=== PATIENT | male | born 1955 | race Caucasian/White ===

== ENCOUNTER 2019-12-07 15:18 | Inpatient (IN) | payer OTHER ==
[~2019-12-07] VITALS: Ht 165.1 cm; Wt 100.0 kg
[2019-12-07] VITALS (8 sets, daily range): BP systolic 136–227; BP diastolic 57–107
--- NOTE | 2019-12-07 15:22 | NUR ---
PATIENT TO ROOM VIA WHEELCHAIR. PATIENT REPORTS CHEST PAIN WITH COUGH. CO-WORKS BRINGING PATIENT IN FOR EVALUATION, REPORTS HAVING CONFUSION X2 DAYS AND KNOW OF HISTORY OF STROKES. PATIENT ALERT AND ORIENTED ONLY TO SELF. PATIENT NOTED TO HAVE APHASIA. PAST MEDICAL HISTORY OBTAINED FROM PATIENT'S SON, VAN GAGNON. CELL PHONE NUMBER [phone], REQUESTING TO BE CONTACTED FOR ANY ADDITIONAL CHANGES TO PATIENT STATUS AND PLAN OF CARE.
--- NOTE | 2019-12-07 16:00 | NUR ---
DR MONSON AT BEDSIDE FOR ASSESSMENT;
[2019-12-07 16:02] LABS: PROTHROMBIN TIME 10.2 SECONDS (9.0-12.5)
[2019-12-07 16:03] LABS: ALBUMIN 3.5 g/dL (3.2-5.0); BILIRUBIN, TOTAL 0.4 mg/dL (0.0-1.4); CREATININE 2.7 mg/dL (0.7-1.3); POTASSIUM 4.1 mmol/l (3.5-5.1); TOTAL PROTEIN 6.6 g/dL (6.3-8.2)
[2019-12-07 16:08] LABS: HEMATOCRIT 29.9 % (39.0-50.0); IMMATURE GRANULOCYTES 0.3 % (0.0-5.0); MEAN CELL VOLUME 83.8 fL CALC (80.0-100.0); MEAN CORPUSCULAR HGB CONC 33.4 g/L CALC (32.0-36.0); NEUT# 4.53 thou/uL (1.82-7.42); RED BLOOD COUNT 3.57 mill/uL (4.70-6.10); RED CELL DISTRI WIDTH 14.5 % (11.5-15.5)
--- NOTE | 2019-12-07 16:29 | NUR ---
PT MEDICATED AT THIS TIME FOR HTN, 213/103; MONITORING DEVICES IN PLACE; WILL CONTINUE TO MONITOR
--- NOTE | 2019-12-07 17:00 | NUR ---
DR MONSON AT BEDSIDE TO REASSESS PT;
--- NOTE | 2019-12-07 17:37 | NUR ---
PT MEDICATED PER MAR FOR B/P 219/100 DR MONSON AT BEDSIDE FOR ASSESSMENT
--- NOTE | 2019-12-07 18:00 | NUR ---
PT SITTING UP ON STRETCHER; C/O LOWER BACK PAIN; MONITORING DEVICES IN PLACE; B/P IMPROVING AT THIS TIME; WILL CONTINUE TO MONITOR
--- NOTE | 2019-12-07 18:50 | NUR ---
PT MEDICATED PER MAR FOR LOWER BACK AND FLANK PAIN RATING 10 OUT OF 10; MONITORING DEVICES IN PLACE; WILL CONTINUE TO MONITOR
--- NOTE | 2019-12-07 19:08 | NUR ---
REPORT CALLED TO CHUY CARLIN
--- NOTE | 2019-12-07 19:11 | NUR ---
Admission Note Report Given to: CHUY CARLIN Transported by: Wheelchair X Stretcher Transported with: X Nurse Transporter X Patent IV O2 X Host And Hostess Location: X ICU MS2
--- NOTE | 2019-12-07 19:50 | NUR ---
[id number]- PT. ARRIVED TO THE FLOOR VIA STRETCHER ACCOMPANIED BY ER STAFF. PT. IS ABLE TO AMBULATE INTO BED. PT. ORIENTED TO CALL LIGHT, ROOM, AND POC; WILL NEED REINFORCEMENT. PT. IS A/A/OX3 BUT NOT ABLE TO ARTICULATE EVERYTHING CORRECTLY WITH SOME OF PT'S SENTENCES NOT MAKING SENSE,AND NOT ABLE TO GIVE PMH. PT. DOES REPORT THAT HE HAD SOME DRINKS TODAY AND DOES C/O COUGH AND CHEST HURTING FOR A FEW DAYS. PT. IS A POOR HISTORIAN. SKIN INTACT AND PUPILS ARE EQUAL AND REACTIVE AND ABLE TO FOLLOW PEN IN FRONT OF HIM. MARAH HOSE PLACED TO BLE. IV SITE PATENT AND SL TO LAC. B/P ELEVATED 226/107 AND PT. REPORTS HE THINKS HE TAKES CLONIDINE AT HOME, BUT IS A UNRELIABLE SOURCE AT THIS TIME. 1949- NOTIFIED DR. LOPEZ OF THE ABOVE NOTE WELL ELEVATED BUN/CREATININE WITH NO IVF ORDERS. NEW ORDERS RECEIVED AND TO BE CARRIED OUT.
--- NOTE | 2019-12-07 20:17 | NUR ---
B/P 181/96 AND MEDICATED WITH ORDERED PRN HYDRALAZINE ALONG WITH X1 DOSE OF ATIVAN; WILL REASSESS. FLU SWAB OBTAINED AND URINE SAMPLE WELL. PT. VOIDED 600MLS OF CLEAR YELLOW URINE.
[2019-12-07 20:54] LABS: URINE BILIRUBIN - DIPSTICK NEGATIVE (NEGATIVE); URINE BLOOD DIPSTICK SMALL (NEGATIVE); URINE COLOR YELLOW; URINE GLUCOSE - DIPSTICK 100 mg/dL (NEGATIVE); URINE KETONE NEGATIVE (NEGATIVE); URINE LEUK ESTERASE NEGATIVE (NEGATIVE); URINE NITRITE - DIPSTICK NEGATIVE (Negative); URINE PH 5.5 (4.5-8.0); URINE PROTEIN - DIPSTICK >=300 mg/dL (NEG-TRACE); URINE UROBILINOGEN - DIPSTICK 0.2 E.U./dL (0.2)
[2019-12-07 20:57] LABS: URINE WBC 0-2 WBC/hpf (0-5)
[2019-12-07 20:58] LABS: BARBITURATES NEGATIVE (NEGATIVE); COCAINE NEGATIVE (NEGATIVE); METHADONE NEGATIVE (NEGATIVE); OXCYCODONE NEGATIVE (NEGATIVE); TETRAHYDROCANNABIONOL NEGATIVE (NEGATIVE); TRICYLIC ANTIDEPRESSANTS NEGATIVE (NEGATIVE)
--- NOTE | 2019-12-07 21:15 | NUR ---
PT. C/O GENERALIZED PAIN ALONG WITH CHEST PAIN R/T COUGHING. MEDICATED WITH ORDERED PRN TYLENOL. WILL REASSESS. PT. WILL INTERMITTENTLY YELL OUT AND GET ANXIOUS IN REGARDS TO COUGHING WITH CHEST HURTING. RELAXATION TECHNIQUES IMPLEMENTED. PT. REPORTS HE IS HOT AND REMOVED MARAH HOSE AND FAN PROVIDED.
--- NOTE | 2019-12-07 23:11 | NUR ---
PT. RESTING IN BED ON RIGHT SIDE WITH EYES CLOSED; RESP. EVEN AND UNLABORED. BED ALARM ON. CALL LIGHT IS IN REACH.
[2019-12-08] VITALS (12 sets, daily range): BP systolic 129–184; BP diastolic 60–79
--- NOTE | 2019-12-08 00:02 | NUR ---
PT. CONTINUES TO C/O SORENESS TO CHEST FROM COUGHING AND GENERALIZED ACHINESS WITH INTERMITTENT YELLING DUE TO SENSITIVITY FROM COUGH. MEDICATED WITH NEW ORDERS RECEIVED FOR PAIN AND SLEEP/RELXATION. WILL CONTINUE TO MONITOR. NEURO CHECK PERFORMED PRIOR TO MEDICATIONS AND REMAINS THE SAME. ABLE TO MOVE ALL EXTREMETIES AND PUPILS EQUAL AND REACTIVE.
--- NOTE | 2019-12-08 02:00 | NUR ---
RESTING IN BED WITH NO DISTRESS NOTED; RESP. EVEN AND UNLABORED.
--- NOTE | 2019-12-08 03:11 | NUR ---
B/P 155/79 AND MEDICATED WITH ORDERED PRN APRESOLINE; WILL REASSESS. PT. IS SLEEPING AND AWAKNS TO VERBAL STIMULI. ENCOURAGED TO CALL FOR ANY NEEDS. CALL LIGHT IS IN REACH.
--- NOTE | 2019-12-08 05:10 | NUR ---
PT. YELLING OUT AND COUGHING AND REPORTING PAIN TO CHEST FROM COUGHING AND ELEVATED B/P ; MEDICATED WITH ORDERED PRN PERCOCET PER ORDER; WILL REASSESS PAIN AND B/P.
--- NOTE | 2019-12-08 06:31 | NUR ---
RESTING IN BED ON LEFT SIDE WITH EYES CLOSED; RESP. EVEN AND UNLABORED. CALL LIGHT IS IN REACH.
--- NOTE | 2019-12-08 06:45 | NUR ---
RECIEVED REPORT FROM CHUY TANNER. ASSUMED PT CARE.
--- NOTE | 2019-12-08 07:30 | NUR ---
PT ALERT TO PERSON AND TIME, POOR HISTORIAN. ABLE TO MAKE NEEDS KNOWN. PTDENIES CP, SOB OR DISTRESS AT THIS TIME. PT RESPIRATIONS SHALLOW , PT ENCOURAGED TO TAKE DEEP BREATHS TO OPEN LUNGS, PT STATED HE DIDN'T WANT TO BECAUSE THEN HE COUGHS AND IT HURTS. PT HAS PRODUCTIVE COUGH, SMALL AMOUNT GREEN PHLEGM, SAMPLE SENT TO LAB. ABDOMEN DISTENDED, NON-TENDER, BSX4 ACTIVE. CALL LIGHT IN REACH. WILL MONITOR.
--- NOTE | 2019-12-08 08:45 | NUR ---
DR. RAMIREZ AT [facility] FOR ASSESSMENT AND TO DISCUSS PLAN OF CARE.
--- NOTE | 2019-12-08 08:50 | NUR ---
PT LEFT UNIT FOR MRI VIA WC.
--- NOTE | 2019-12-08 09:00 | NUR ---
AL FROM MRI CALLED STATED PT WAS REFUSING TO GET MRI , PT THEN STARTED GETTING LOUD. PT REFUSED MRI TEST PER AL IN MRI.
--- NOTE | 2019-12-08 09:15 | NUR ---
ATTEMPTED TO NOTIFIY ORIANA GALVEZ. SON DID NOT ANSWER AND UNABLE TO LEAVE A VM, IE .. VM FULL.
--- NOTE | 2019-12-08 09:38 | NUR ---
LAB AT BEDSIDE FOR BLOOD DRAW.
[2019-12-08 10:28] LABS: CHOLESTEROL HDL RATIO 2.9 (<4.4 (CALC))
--- NOTE | 2019-12-08 10:30 | NUR ---
LEE HANCOCK AT BEDSIDE FOR ASSESSMENT AND PAPERWORK.
--- NOTE | 2019-12-08 11:47 | NUR ---
DIETARY ON UNIT, PT REPOSITIONED SELF. LUNCH TRAY SET UP.
--- NOTE | 2019-12-08 12:05 | NUR ---
PT RESTING IN BED OF L SIDE WITH EYES CLOSED. CALL LIGHT IN REACH. WILL MONITOR.
--- NOTE | 2019-12-08 13:00 | NUR ---
PT RESTING IN BED WITH EYES CLOSED. NO DISTRESS NOTED AT THIS TIME.
--- NOTE | 2019-12-08 14:18 | NUR ---
PT MEDICATED FOR PAIN 9/10 GENERALIZED ORDERED PER PT REQUEST.
--- NOTE | 2019-12-08 15:02 | NUR ---
PT RESTING IN BED WITH EYES CLOSED, NO SOB, COUGH OR DISTRESS NOTED AT THIS TIME. WILL MONITOR.
--- NOTE | 2019-12-08 16:13 | NUR ---
PT ASSISTED WITH URINAL, SBA . PT WITH STEADY GAIT.
[2019-12-08] MEDS ORDERED: ATORVASTATIN CA40 MG PO (16:53)
[2019-12-08] MEDS ORDERED: LISINOPRIL20 M1 PO (16:54)
[2019-12-08] MEDS ORDERED: NIFEDIPINE ER90 MG PO (16:55)
[2019-12-08] MEDS ORDERED: CLONIDINE0.1 MG PO (16:56)
[2019-12-08] MEDS ORDERED: CARVEDILOL25 MG PO (16:56)
[2019-12-08] MEDS ORDERED: PLAVIX75 MG PO (16:57)
[2019-12-08] MEDS ORDERED: LANTUS SOL100 UNIT/M SC (16:59)
--- NOTE | 2019-12-08 17:24 | NUR ---
DIETARY ON UNIT, DINNER TRAY SET UP.
--- NOTE | 2019-12-08 18:16 | NUR ---
PT MEDICATED FOR PAIN 06/18 ORDERED AND PER PT REQUEST. PT ALSO MEDICATED WITH COUGH SYRUP PER PT REQUEST. CALL LIGHT IN REACH. WILL MONITOR.
--- NOTE | 2019-12-08 19:00 | NUR ---
PATIENT WAS LAYING ON HIS LEFT SIDE, EYES CLOSED, AWAKENS EASILY, SITS UP IN BED. ALERT AND ORIENTED TO NAME, , PLACE. DOES NOT REMEMBER HIS AGE, CURRENT MONTH, HIS RESPONSE AT TIMES, "I DON'T KNOW." FOLOWS ALL DIRECTIONS ALTHOUGH HAS TO BE ASKED QUESTIONS REPEATEDLY. NO DRIFT ON EXTREMITIES, NO DROOP, NO SLURRING, OR NURSE MANAGER BILATERALLY WEAK. REPORTS HIS FEET HAVE ALWAYS BEEN BILATERALLY NUMB. SELF REPSOITIONS. NSR ON TELEMETRY. POC FOR TONIGHT DISCUSSED. LAC 20 G IV INTACT, SL'D. ON ROOM AIR, NO SOB NOTED. COUGH IS DIETIST, DRY. PT REPORTS HE IS FEELING BETTER. REPORTS PAIN IS AN 8 WHEN HE MOVES. CALL LIGHT WITHIN REACH. URINAL WITHIN REACH. AGREES TO CALL AT ALL TIMES FOR ASSISTANCE.
--- NOTE | 2019-12-08 19:55 | NUR ---
PT SUPERVISOR WASH HOUSE LIGHT, ASSISTED STANDBY TO RETSROOM. PT REPORTS HE HAD TO HAVE A BM, PT DID NOT HAVE A BM AND STATED, "NO, I DON'T LIKE THIS, I DON'T LIKE THIS PLACE," WHEN ASKED IF HE HAD A BM. SAT ON SIDE OF BED FOR A FEW MINUTES. LAYED BACK DOWN. TELEMETRY, BP CUFF, AND PULSE OX PLACED BACK ON. CALL LIGHT WITHIN REACH.
--- NOTE | 2019-12-08 20:35 | NUR ---
PATIENT ABLE TO SWALLOW HIS BEDTIME MEDICATIONS WITHOUT DIFFICULTY. CONVERSATES. NEW ICED WATER PROVIDED. NO OTHER NEEDS. CALL LIGHT WITHIN REACH.
[2019-12-09] VITALS: BP 134/61
--- NOTE | 2019-12-09 00:27 | NUR ---
PATIENT AWAKENS EASILY WITH NOISE, SATS 97% ON RA. GOES RIGHT BACK TO SLEEP. NO ACUTE DISTRESS SHOWN. NO NEEDS AT THIS TIME. CALL LIGHT WITHIN REACH.
[2019-12-09 02:00] VITALS: BP 149/81
--- NOTE | 2019-12-09 02:05 | NUR ---
PT AMUSEMENT PARK ENTERTAINER LIGHT, ASB TO RESTROOM, STEADY GAIT, WASHED HIS HANDS. REPORTS HE IS READY TO BE DISCHARGED. PROVIDED COUGH MEDICATION. NO OTHER COMPLAINTS. SITS UP, TURNS TV ON. CALL LIGHT WITHIN REACH.
--- NOTE | 2019-12-09 02:56 | NUR ---
PT HEALTH EDUCATION ASSISTANT LIGHT, REQUESTS CRACKERS WITH MILK. PROVIDED. NO ACUTE DISTRESS SHOWN. CALL LIGHT WITHIN REACH.
[2019-12-09 04:00] VITALS: BP 139/55
--- NOTE | 2019-12-09 04:41 | NUR ---
PT BOW MAKER MACHINE TENDER LIGHT. REPORTS SOMEONE TURNED HIS LIGHT ON AND HE WANTS ICED WATER. PROVIDED. SITS UP, WATCHES TV.
[2019-12-09 05:35] LABS: CREATININE 2.6 mg/dL (0.7-1.3); POTASSIUM 4.7 mmol/l (3.5-5.1)
[2019-12-09 05:43] LABS: HEMATOCRIT 29.8 % (39.0-50.0); HEMOGLOBIN 9.9 g/dl (14.0-18.0); MEAN CELL VOLUME 85.9 fL CALC (80.0-100.0); MEAN CORPUSCULAR HGB 28.5 pG CALC (26.0-32.0); MEAN CORPUSCULAR HGB CONC 33.2 g/L CALC (32.0-36.0); RED BLOOD COUNT 3.47 mill/uL (4.70-6.10); RED CELL DISTRI WIDTH 14.5 % (11.5-15.5)
[2019-12-09 06:00] VITALS: BP 154/57
--- NOTE | 2019-12-09 06:38 | NUR ---
PAIN MEDIACTION AND APRESOLINE IV PRN GIEVN TO PATIENT PER PARAMETERS. PT NOW SITS UP, WATCHES TV. CALL LIGHT WIHIN REACH.
--- NOTE | 2019-12-09 06:45 | NUR ---
RECIEVED REPORT FROM CHUY WOOD. ASSUMED PT CARE.
[2019-12-09 07:15] VITALS: BP 157/65
--- NOTE | 2019-12-09 07:15 | NUR ---
PT RESTING IN BED. A&OX3, ABLE TO MAKE NEEDS KNOWN. RESPIRATIONS EVEN/UNLABORED. SA02@98%RA, PT CONTINUES WITH COUGH. AFEBRILE. LS CLEAR THROUGHOUT. CALL LIGHT IN REACH WILL MONITOR.
--- NOTE | 2019-12-09 08:00 | NUR ---
ASSISTED PT WITH BATH SET UP. PT BATHED SELF.
--- NOTE | 2019-12-09 10:00 | NUR ---
DR. RAMIREZ AT [facility] FOR ASSESSMENT AND TO DISCUSS PLAN OF CARE, NEW ORDERS RECIEVED.
[2019-12-09 10:05] VITALS: BP 157/65
--- NOTE | 2019-12-09 10:30 | NUR ---
PT MEDICATED FOR PAIN 810 PER PT REQUEST FOR COUGHING/RIB PAIN.
[2019-12-09] MEDS ORDERED: MEDDOSEPAK PO (11:07)
[2019-12-09] MEDS ORDERED: ZITHROMAX250 MG PO (11:07)
[2019-12-09] MEDS ORDERED: BIOTUSSIN PO (11:07)
[2019-12-09] MEDS ORDERED: VANTIN100 MG PO (11:07)
--- NOTE | 2019-12-09 11:15 | NUR ---
IV site discontinued, cath intact. No edema , no redness, voices no discomfort.
--- NOTE | 2019-12-09 11:28 | NUR ---
NOTIFIED SHAN, PT EMERGENCY CONTACT PER PT REQUEST FOR RIDE AT DISCHARGE.
--- NOTE | 2019-12-09 11:50 | NUR ---
Discharge instructions given. Patient verbalizes understanding of same. Discharged in stable condition via Wheelchair to Home with family. All belongings sent with pt. PAPER PRESCRIPTION SENT HOME WITH PT.
== END 2019-12-09 11:50 | disposition home or self-care (01) | DRG 178 ==
LOC: ED 15:18 → ED-I 17:20 → ED 18:04 → ICU 18:05
PROVIDERS: Emergency Medicine; Internal Medicine; ADMIT Internal Medicine; ATTEND Internal Medicine
DX: J15.5 Pneumonia due to Escherichia coli (principal); J44.1 Chronic obstructive pulmonary disease with (acute) exacerbation; J44.0 Chronic obstructive pulmonary disease with (acute) lower respiratory infection; N17.9 Acute kidney failure, unspecified; G93.40 Encephalopathy, unspecified; I12.9 Hypertensive chronic kidney disease with stage 1 through stage 4 chronic kidney disease, or unspecified chronic kidney disease; E11.22 Type 2 diabetes mellitus with diabetic chronic kidney disease; N18.3 Chronic kidney disease, stage 3 (moderate); E11.42 Type 2 diabetes mellitus with diabetic polyneuropathy; I25.10 Atherosclerotic heart disease of native coronary artery without angina pectoris; I69.311 Memory deficit following cerebral infarction; F40.240 Claustrophobia; M19.90 Unspecified osteoarthritis, unspecified site; Z95.1 Presence of aortocoronary bypass graft; Z95.5 Presence of coronary angioplasty implant and graft; Z79.4 Long term (current) use of insulin
CPT/HCPCS: J2060

== ENCOUNTER 2019-12-13 | Observation (INO) | payer OTHER ==
[2019-12-13] VITALS (8 sets, daily range): BP systolic 146–174; BP diastolic 73–93
[~2019-12-13] MED LIST: ATORVASTATIN CA40 MG PO; BIOTUSSIN PO; CARVEDILOL25 MG PO; CLONIDINE0.1 MG PO; LANTUS SOL100 UNIT/M SC; LISINOPRIL20 M1 PO; MEDDOSEPAK PO; NIFEDIPINE ER90 MG PO; PLAVIX75 MG PO; VANTIN100 MG PO; ZITHROMAX250 MG PO
[2019-12-13 01:06] LABS: HEMATOCRIT 29.8 % (39.0-50.0); IMMATURE GRANULOCYTES 0.5 % (0.0-5.0); MEAN CELL VOLUME 85.1 fL CALC (80.0-100.0); MEAN CORPUSCULAR HGB 28.6 pG CALC (26.0-32.0); MEAN CORPUSCULAR HGB CONC 33.6 g/L CALC (32.0-36.0); NEUT# 6.28 thou/uL (1.82-7.42); RED BLOOD COUNT 3.5 mill/uL (4.70-6.10); RED CELL DISTRI WIDTH 14.6 % (11.5-15.5)
[2019-12-13 01:24] LABS: ACT PARTIAL THROMBO TIME 20.1 SECONDS (20.0-32.5); PROTHROMBIN TIME 10.2 SECONDS (9.0-12.5)
[2019-12-13 01:25] LABS: ALBUMIN 3.2 g/dL (3.2-5.0); BILIRUBIN, TOTAL 0.3 mg/dL (0.0-1.4); CREATININE 2.9 mg/dL (0.7-1.3); POTASSIUM 3.9 mmol/l (3.5-5.1); TOTAL PROTEIN 6.1 g/dL (6.3-8.2)
[2019-12-13 01:26] LABS: BARBITURATES NEGATIVE (NEGATIVE); COCAINE NEGATIVE (NEGATIVE); METHADONE NEGATIVE (NEGATIVE); OXCYCODONE POSITIVE (NEGATIVE); TETRAHYDROCANNABIONOL NEGATIVE (NEGATIVE); TRICYLIC ANTIDEPRESSANTS NEGATIVE (NEGATIVE)
== END 2019-12-13 10:47 | disposition left against medical advice (07) ==
PROVIDERS: ADMIT Internal Medicine
DX: I16.0 Hypertensive urgency (principal); R07.9 Chest pain, unspecified; J44.1 Chronic obstructive pulmonary disease with (acute) exacerbation; J44.0 Chronic obstructive pulmonary disease with (acute) lower respiratory infection; J15.5 Pneumonia due to Escherichia coli; R79.89 Other specified abnormal findings of blood chemistry; I12.9 Hypertensive chronic kidney disease with stage 1 through stage 4 chronic kidney disease, or unspecified chronic kidney disease; E11.22 Type 2 diabetes mellitus with diabetic chronic kidney disease; N18.9 Chronic kidney disease, unspecified; E27.9 Disorder of adrenal gland, unspecified; I25.10 Atherosclerotic heart disease of native coronary artery without angina pectoris; I69.998 Other sequelae following unspecified cerebrovascular disease; G89.29 Other chronic pain; M54.5 Low back pain; Z95.1 Presence of aortocoronary bypass graft; Z95.5 Presence of coronary angioplasty implant and graft; Z79.4 Long term (current) use of insulin